=== PATIENT | female | born 1975 | race Caucasian/White ===

== ENCOUNTER 2020-08-21 12:28 | Emergency (ER) | payer OTHER ==
[~2020-08-21 12:28] MED LIST: CLEOCIN 150MG150 MG PO; PROBIOTIC & AC1 EACH PO
[2020-08-21] MEDS ORDERED: BACTRIM DS TAB1 EACH PO (13:08)
[2020-08-21] MEDS ORDERED: CEPHALEXIN500 MG PO (13:08)
== END 2020-08-21 13:31 | disposition home or self-care (01) ==
LOC: ER1 12:28
DX: J34.0 Abscess, furuncle and carbuncle of nose (principal); Z90.49 Acquired absence of other specified parts of digestive tract; Z88.0 Allergy status to penicillin; Z88.6 Allergy status to analgesic agent
CPT/HCPCS: 99283

== ENCOUNTER 2020-09-04 09:54 | Emergency (ER) | payer OTHER ==
[~2020-09-04 09:54] MED LIST changes: +BACTRIM DS TAB1 EACH PO; +CEPHALEXIN500 MG PO
== END 2020-09-04 11:51 | disposition home or self-care (01) ==
LOC: ER1 09:54
DX: H53.9 Unspecified visual disturbance (principal); I10 Essential (primary) hypertension; E78.00 Pure hypercholesterolemia, unspecified; Z88.8 Allergy status to other drugs, medicaments and biological substances; Z90.49 Acquired absence of other specified parts of digestive tract
CPT/HCPCS: 99283

== ENCOUNTER 2021-01-24 08:43 | Emergency (ER) | payer OTHER ==
[~2021-01-24] VITALS: Ht 149.9 cm; Wt 78.0 kg
[2021-01-24 10:23] LABS: HEMOGLOBIN 12.8 gm/dl (12.3-15.3); RED BLOOD COUNT 4.72 M/UL (4.00-5.10)
[2021-01-24 11:52] LABS: BUN/CREATININE RATIO 13 (0-10)
[2021-01-24] MEDS ORDERED: ZOFRAN ODT 4 MG4 MG SL (12:29)
[2021-01-24] MEDS ORDERED: BENTYL 10MG CAP10 MG PO (12:29)
== END 2021-01-24 13:53 | disposition home or self-care (01) ==
LOC: ER1 08:43
PROVIDERS: Nurse Practitioner
DX: U07.1 COVID-19 (principal); E11.9 Type 2 diabetes mellitus without complications; Z23 Encounter for immunization; Z79.84 Long term (current) use of oral hypoglycemic drugs; Z88.0 Allergy status to penicillin; Z90.49 Acquired absence of other specified parts of digestive tract
CPT/HCPCS: 80053; 81001; 85025; 96372; 96374; 96375; 99284; J0500; J1885; J2405; M0245

== ENCOUNTER 2021-07-21 17:46 | Emergency (ER) | payer OTHER ==
[~2021-07-21 17:46] MED LIST changes: +BENTYL 10MG CAP10 MG PO; +ZOFRAN ODT 4 MG4 MG SL
[2021-07-21 18:29] LABS: HEMOGLOBIN 12.6 gm/dl (12.3-15.3); RED BLOOD COUNT 4.7 M/UL (4.00-5.10); WHITE BLOOD COUNT 11.4 K/UL (4.5-11.0)
[2021-07-21 18:49] LABS: BUN/CREATININE RATIO 14 (0-10)
== END 2021-07-21 21:23 | disposition home or self-care (01) ==
LOC: ER1 17:46
DX: R10.11 Right upper quadrant pain (principal); R19.7 Diarrhea, unspecified; R10.811 Right upper quadrant abdominal tenderness; E11.9 Type 2 diabetes mellitus without complications; Z90.49 Acquired absence of other specified parts of digestive tract; Z88.0 Allergy status to penicillin
CPT/HCPCS: 80053; 81001; 83690; 85025; 93005; 96374; 99284; J2405